=== PATIENT | female | born 1970 | race Caucasian/White ===

== ENCOUNTER 2017-12-08 11:53 | Emergency (ER) | payer OTHER ==
[2017-12-08 12:21] VITALS: BP 145/86; PULSE 80; O2SAT 98
--- NOTE | 2017-12-08 12:22 | ERPHSYRPT ---
- History of Present Illness Time Seen by Provider: 12/08/17 12:10 Source: patient Exam Limitations: no limitations Physician History: 47 y/o white female with 1 week h/o right lower back pain. worsened today. pt has had similar sx in the past and was dx with uti. pt took old bactrim, thought sx improved but worsened today. pain shoots down right buttock. denies trauma. denies dysuria, frequency and hesitancy. Timing/Duration: week(s) (1) Method of Injury: other (no injury) Quality: radiating, sharp Back Pain Location: paraspinous muscles Back Pain Radiation: buttocks Severity of Pain-Max: moderate Severity of Pain-Current: mild Modifying Factors: Improves With: movement Associated Symptoms: light-headedness, No fever, No chills, No sweating, No urinary incontinence, No loss of bowel control, No nausea, No vomiting, No dizziness, No weakness, No sensory/motor loss, No muscle spasms Allergies/Adverse Reactions: No Known Drug Allergies Allergy (Unverified 08/03/16 12:26) Home Medications: Clonidine HCl 0.1 mg [Catapres 0.1 MG] 0.1 mg PO BID 08/03/16 [History] Lisinopril 20 mg [Zestril 20 MG] 20 mg PO DAILY 08/03/16 [History] Naproxen 500 mg PO BID 08/03/16 [History] Oxycodone HCl/Acetaminophen [Oxycodone-Acetaminophen 5-325] 1 tab PO Q6HPRN PRN 08/03/16 [History] - Review of Systems Constitutional: No Symptoms, No Fever, No Chills Eyes: No Symptoms, No Eye Pain Ears, Nose, & Throat: No Symptoms, No Ear Pain Respiratory: No Symptoms, No Cough, No Dyspnea, No Dyspnea on Exertion (MCKNIGHT), No Stridor, No Wheezing Cardiac: No Symptoms, No Chest Pain Abdominal/Gastrointestinal: No Symptoms, No Abdominal Pain, No Nausea, No Vomiting, No Diarrhea Genitourinary Symptoms: No Symptoms, No Dysuria, No Frequency, No Hematuria Musculoskeletal: Back Pain Skin: No Symptoms Neurological: No Symptoms Psychological: No Symptoms Endocrine: No Symptoms Hematologic/Lymphatic: No Symptoms Immunological/Allergic: No Symptoms All Other Systems: Reviewed and Negative - Past Medical History Neurological History: No Pertinent History Cardiac History: Hypertension Respiratory History: No Pertinent History Endocrine Medical History: No Pertinent History Musculoskeletal History: Arthritis, Degenerative Disk Disease GI Medical History: No Pertinent History History: No Pertinent History Psycho-Social History: No Pertinent History Female Reproductive Disorders: No Pertinent History - Past Surgical History Neuro Surgical History: No Pertinent History Cardiac: No Pertinent History Respiratory: No Pertinent History Gastrointestinal: No Pertinent History Genitourinary: No Pertinent History Musculoskeletal: No Pertinent History Female Surgical History: No Pertinent History - Nursing Vital Signs Nursing Vital Signs: Initial Vital Signs Temperature 97.6 F 12/08/17 12:13 Pulse Rate 80 12/08/17 12:13 Respiratory Rate 16 12/08/17 12:13 Blood Pressure 145/86 12/08/17 12:13 O2 Sat by Pulse Oximetry 98 12/08/17 12:13 Pain Scale Pain Intensity [Posterior Back 8 ] Pain Intensity 8 - Physical Exam General Appearance: mild distress, alert Eye Exam: PERRL/EOMI, eyes nml inspection Ears, Nose, Throat Exam: normal ENT inspection, TMs normal Neck Exam: normal inspection, non-tender, supple, full range of motion Respiratory Exam: normal breath sounds, lungs clear, No chest tenderness, No respiratory distress, No airway intact, No wheezing, No stridor Gastrointestinal Exam: soft, No tenderness Pelvic Exam: not done Rectal Exam: not done Back Exam: normal inspection, normal range of motion, CVA tenderness (right), No vertebral tenderness Extremity Exam: normal inspection, normal range of motion, pelvis stable Neurologic Exam: alert, oriented x 3, cooperative, heel sander rubber II-XII nml as tested, No motor deficits, No sensory deficit, No disoriented, No confusion Skin Exam: normal color, warm, dry Lymphatic Exam: adenopathy SpO2 Interpretation: normal Oxygen Delivery: Room Air - Course Nursing assessment & vital signs reviewed: Yes Ordered Tests: Active Orders 24 hr Category Date Time Status Clean Catch Urine Specimen STAT Care 12/08/17 12:22 Active CULTURE,URINE Stat Lab 12/08/17 12:30 Received UA W/ MICROSCOPIC Stat Lab 12/08/17 12:30 Completed Lab/Rad Data: Laboratory Results 12/08/17 Range/Units 12:30 Ur Collection Type CCMS Urine Color YELLOW (YELLOW) Urine Appearance CLEAR (CLEAR) Urine pH 5.0 (5-6) Ur Specific [place] 1.025 (1.005-1.025) Urine Protein 30 (Negative) Urine Ketones SMALL (NEGATIVE) Urine Blood 50 (0-5) Khris/ul Urine Nitrite POSITIVE (NEGATIVE) Urine Bilirubin SMALL (NEGATIVE) Urine Urobilinogen 1 (0-1) mg/dL Ur Leukocyte Esterase SMALL (NEGATIVE) Urine Microscopic RBC 0-2 (0-2) /HPF Urine Microscopic WBC 5-10 (0-5) /HPF Ur Epithelial Cells FEW (FEW) /HPF Urine Bacteria RARE (NEGATIVE) /HPF Urine Mucus SLIGHT (NEGATIVE) /HPF Urine Culture Reflexed YES (NO) Urine Glucose 100 (NEGATIVE) mg/dL Specimen Received 12-08-17 1250 - Progress Progress: unchanged Progress Note: 12/08/17 12:58 pt has a uti. will prescribe cipro Counseled pt/family regarding: lab results, diagnosis - Departure Time of Disposition: 12:59 Departure Disposition: Home Clinical Impression: UTI (urinary tract infection) Condition: Stable Critical Care Time: No Referrals: DAPHNE MACIAS [Primary Care Provider] - Additional Instructions: drink plenty of fluids. add ibuprofen for pain. follow up with primary doctor for persistent symptoms Prescriptions: Ciprofloxacin [Cipro 500 MG] 500 mg PO BID #14 tablet Tramadol HCl 50 mg [Ultram 50 mg] 50 mg PO TID PRN #15 tablet PRN Reason: Mild To Moderate Pain
[2017-12-08 12:54] LABS: Appearance CLEAR (CLEAR); Bacteria RARE /HPF (NEGATIVE); Bilirubin SMALL (NEGATIVE); Blood 50 Ery/ul (0-5); Epithelial Cells FEW /HPF (FEW); Glucose 100 mg/dL (NEGATIVE); Ketones SMALL (NEGATIVE); Leukocyte Esterase SMALL (NEGATIVE); Mucus SLIGHT /HPF (NEGATIVE); Nitrite POSITIVE (NEGATIVE); Protein,Urine Dip 30 (Negative); RBC 0-2 /HPF (0-2); Specific Gravity 1.025 (1.005-1.025); Urobilinogen 1 mg/dL (0-1)
== END 2017-12-08 13:07 | disposition home or self-care (01) ==
LOC: ED 11:53
DX: N39.0 Urinary tract infection, site not specified (principal); Z79.899 Other long term (current) drug therapy
CPT/HCPCS: 81000; 87086; 99283

== ENCOUNTER 2023-05-27 00:49 | Emergency (ER) | payer OTHER ==
[2023-05-27 01:16] VITALS: TEMP 97.1
--- NOTE | 2023-05-27 01:25 | ERPHSYRPT ---
- History of Present Illness Time Seen by Provider: 05/27/23 01:15 Source: patient, family Exam Limitations: no limitations Patient Subjective Stated Complaint: pt states she passed out. states she had 5 teeth pulled on and has not been eating or drinking well since. Triage Nursing Assessment: pt alert and oriented, answers questions approp. pt ambulates into room with steady gait noted. respirations nonlabored. skin warm and dry. abrasion to rt cheek and rt hand. pupils equal and reactive. pt moves all ext without diff. Physician History: This is a 52-year-old white female patient Dr. Newell who presents to the emergency department after a syncopal episode caused her to fall hitting her head and face. Patient was in the kitchen and suddenly felt dizzy slightly nauseated and the next thing she knew her was picking her up off the floor. Her daughter and placed her on a chair where the patient was staring off into space and not interacting. Suddenly, patient became alert and oriented. Patient arrived to the emergency department alert and oriented and vital signs are stable. Patient denies chest pain and she denies shortness of breath. 5 days ago, patient was getting dentures fitted. Yesterday, 05/26/2023, patient had adjustments made on her teeth in order for the dentures to fit more securely. She does have dental pain that began 5 days ago with this denture making process. However, she is only taking Tylenol and naproxen. Patient has a history of hypertension. She denies abdominal pain. She denies nausea vomiting and diarrhea symptoms. Timing/Duration: today Severity: mild (Mild symptoms now but moderate symptoms prior to arrival) Modifying Factors: Improves With: nothing Associated Symptoms: denies symptoms Allergies/Adverse Reactions: No Known Drug Allergies Allergy (Verified 05/27/23 01:16) Home Medications: Amitriptyline HCl 25 mg [Amitriptyline 25 mg Tablet] 25 mg PO HS 05/27/23 [History] Losartan/Hydrochlorothiazide [Losartan-Hctz 50-12.5 mg Tab] 1 each PO DAILY 05/27/23 [History] Metoprolol Succinate 50 mg [Toprol Xl 50 MG] 50 mg PO HS 05/27/23 [History] Hx Tetanus, Diphtheria Vaccination/Date Given: Yes (2022) Hx Influenza Vaccination/Date Given: No Hx Pneumococcal Vaccination/Date Given: No Immunizations Up to Date: Yes Travel Risk - International Travel Have you traveled outside of the country in past 3 weeks: No - Coronavirus Screening Are you exhibiting any of the following symptoms?: No Close contact with a COVID-19 positive Pt in past 14-21 Days: No - Vaccine Status Have you recieved a Covid-19 vaccination: No - Review of Systems Constitutional: No Symptoms Eyes: No Symptoms Ears, Nose, & Throat: No Symptoms Respiratory: No Symptoms Cardiac: No Symptoms Abdominal/Gastrointestinal: No Symptoms Genitourinary Symptoms: No Symptoms Musculoskeletal: No Symptoms Skin: No Symptoms Neurological: Dizziness Psychological: No Symptoms Endocrine: No Symptoms Hematologic/Lymphatic: No Symptoms Immunological/Allergic: No Symptoms All Other Systems: Reviewed and Negative - Past Medical History Pertinent Past Medical History: Yes Neurological History: No Pertinent History Cardiac History: Hypertension Respiratory History: No Pertinent History Endocrine Medical History: No Pertinent History Musculoskeletal History: Osteoarthritis GI Medical History: No Pertinent History History: No Pertinent History Psycho-Social History: No Pertinent History Female Reproductive Disorders: No Pertinent History Other Medical History: SPONDYLOSIS, HX OF LATERAL EPICONDYLITIS, CARPAL TUNNEL SURGERY. - Past Surgical History Past Surgical History: Yes Neuro Surgical History: No Pertinent History Cardiac: No Pertinent History Respiratory: No Pertinent History Gastrointestinal: No Pertinent History Genitourinary: No Pertinent History Musculoskeletal: Orthopedic Surgery Female Surgical History: No Pertinent History Other Surgical History: RT CARPAL TUNNEL SURGERY - Social History Smoking Status: Never smoker Exposure to second hand smoke: Yes Drug Use: none Patient Lives Alone: No - Nursing Vital Signs Nursing Vital Signs: Initial Vital Signs Temperature 97.1 F 05/27/23 00:58 Pulse Rate 79 05/27/23 00:58 Respiratory Rate 16 05/27/23 00:58 Blood Pressure 142/86 05/27/23 00:58 O2 Sat by Pulse Oximetry 99 05/27/23 00:58 Pain Scale Pain Intensity 0 - Physical Exam General Appearance: no apparent distress, alert, anxiety Eye Exam: PERRL/EOMI, eyes nml inspection Ears, Nose, Throat Exam: normal ENT inspection, moist mucous membranes Neck Exam: normal inspection, non-tender, supple, full range of motion Respiratory Exam: normal breath sounds, lungs clear, airway intact, No chest tenderness, No respiratory distress Cardiovascular Exam: regular rate/rhythm, normal heart sounds, normal peripheral pulses Gastrointestinal/Abdomen Exam: soft, normal bowel sounds, No tenderness Pelvic Exam: not done Rectal Exam: not done Back Exam: normal inspection, normal range of motion, No CVA tenderness, No vertebral tenderness Extremity Exam: normal inspection, normal range of motion, pelvis stable Neurologic Exam: alert, oriented x 3, cooperative, media production operator II-XII nml as tested, normal mood/affect, nml cerebellar function, nml station & gait, sensation nml Skin Exam: abrasion (Right cheek and chin) Lymphatic Exam: No adenopathy SpO2 Interpretation: normal SpO2: 99 O2 Delivery: Room Air - Course Nursing assessment & vital signs reviewed: Yes EKG Interpreted by Me: RATE (72), Sinus Rhythm, NORMAL AXIS, NORMAL INTERVALS, NORMAL QRS, NORMAL ST-T, Other Ordered Tests: Active Orders 24 hr Category Date Time Status Dry Finisher STAT Care 05/27/23 01:26 Active Clean Catch Urine Specimen STAT Care 05/27/23 01:25 Active EKG-ER Only STAT Care 05/27/23 01:25 Active IV Insertion STAT Care 05/27/23 01:25 Active Pulse Oximetry (ED) STAT Care 05/27/23 01:25 Active CERVICAL SPINE WO CONTRAST [CT] Stat Exams 05/27/23 01:25 Completed FACIAL BONES WO CONTRAST [CT] Stat Exams 05/27/23 01:26 Completed HEAD WITHOUT CONTRAST [CT] Stat Exams 05/27/23 01:25 Completed CBC W DIFF Stat Lab 05/27/23 01:37 Completed CMP Stat Lab 05/27/23 01:37 Completed CULTURE,URINE Stat Lab 05/27/23 02:35 Received ETHYL ALCOHOL Stat Lab 05/27/23 01:37 Completed POCT GLUCOSE Stat Lab 05/27/23 01:08 Completed TROPONIN Q4H Lab 05/27/23 01:37 Completed TROPONIN Q4H Lab 05/27/23 05:45 Ordered TROPONIN Q4H Lab 05/27/23 09:45 Ordered UA W/RFX UR CULTURE Stat Lab 05/27/23 02:35 Completed Urine Triage Profile Stat Lab 05/27/23 02:35 Completed Medication Summary Discontinued Medications Generic Name Dose Route Start Last Admin Trade Name Freq PRN Reason Stop Dose Admin Sodium Chloride 1,000 mls @ 999 mls/hr 05/27/23 01:25 05/27/23 01:31 Sodium Chloride 0.9% 1000 Ml IV 05/27/23 02:25 999 mls/hr .Q1H1M STA Administration Sodium Chloride Confirm 05/27/23 01:29 Sodium Chloride 0.9% 1000 Ml Administered 05/27/23 01:30 Dose 1,000 mls @ ud .ROUTE .STK-MED ONE Potassium Chloride 20 meq 05/27/23 02:07 05/27/23 02:25 Potassium Chloride Tab 10 Meq Tab PO 05/27/23 02:08 20 meq STAT ONE Administration Potassium Chloride Confirm 05/27/23 02:25 Potassium Chloride Tab 10 Meq Tab Administered 05/27/23 02:26 Dose 20 meq .ROUTE .STK-MED ONE Lab/Rad Data: Laboratory Result Diagrams 05/27/23 01:37 05/27/23 01:37 Laboratory Results 05/27/23 05/27/23 05/27/23 Range/Units 02:35 02:35 01:37 WBC (4.0-10.5) x10^3/uL RBC (4.1-5.4) x10^6/uL Hgb (12.0-16.0) g/dL Hct (35-47) % MCV (78-100) fL MCH (26-32) pg MCHC (32-36) g/dL RDW (11.5-14.0) % Plt Count (150-450) x10^3/uL MPV (7.5-11.0) fL Gran % (36.0-66.0) % Immature Gran % (Auto) (0.00-0.4) % Nucleat RBC Rel Count (0.00-0.1) % Eos # (Auto) (0-0.5) x10^3/uL Immature Gran # (Auto) (0.00-0.03) x10^3u/L Absolute Lymphs (auto) (1.0-4.6) x10^3/uL Absolute Monos (auto) (0.0-1.3) x10^3/uL Absolute Nucleated RBC (0.00-0.01) x10^3u/L Lymphocytes % (24.0-44.0) % Monocytes % (0.0-12.0) % Eosinophils % (0.00-5.0) % Basophils % (0.0-0.4) % Absolute Granulocytes (1.4-6.9) x10^3/uL Basophils # (0-0.4) x10^3/uL Sodium (137-145) mmol/L Potassium (3.5-5.1) mmol/L Chloride (98-107) mmol/L Carbon Dioxide (22-30) mmol/L Anion Gap (5-15) MEQ/L BUN (7-17) mg/dL Creatinine (0.52-1.04) mg/dL Estimated GFR ML/MIN Glucose (74-106) mg/dL POC Glucometer (74 to 106) mg/dL Calcium (8.4-10.2) mg/dL Total Bilirubin (0.2-1.3) mg/dL AST (14-36) U/L ALT (0-35) U/L Alkaline Phosphatase (38-126) U/L Troponin I < 0.012 (0.000-0.034) ng/mL Serum Total Protein (6.3-8.2) g/dL Albumin (3.5-5.0) g/dL Urine Color Yellow (Yellow) Urine Appearance Clear (Clear) Urine pH 6.0 (4.6-8.0) Ur Specific [place] 1.025 (1.005-1.030) Urine Protein Trace A (Negative) Urine Glucose (UA) Negative (Negative) mg/dL Urine Ketones 15 A (Negative) Urine Blood Negative (Negative) Urine Nitrite Negative (Negative) Urine Bilirubin Negative (Negative) Urine Urobilinogen 0.2 (0.2) mg/dL Ur Leukocyte Esterase Moderate A (Negative) U Hyaline Cast (Auto) 11-20 (0-2) /LPF Urine Microscopic RBC 0-2 (0-5) /HPF Urine Microscopic WBC 21-50 A (0-5) /HPF Ur Epithelial Cells Few (None Seen) /HPF Urine Bacteria None Seen (None Seen) /HPF Urine Culture Reflexed YES (NO) Urine Opiates Level NEGATIVE (NEGATIVE) Ur Methadone NEGATIVE (NEGATIVE) Urine Barbiturates NEGATIVE (NEGATIVE) Ur Phencyclidine (PCP) NEGATIVE (NEGATIVE) Urine Amphetamine NEGATIVE (NEGATIVE) U Benzodiazepine Level NEGATIVE (NEGATIVE) Urine Cocaine NEGATIVE (NEGATIVE) Urine Marijuana (THC) NEGATIVE (NEGATIVE) Ethyl Alcohol (0-10) mg/dL 05/27/23 05/27/23 05/27/23 Range/Units 01:37 01:37 01:08 WBC 6.7 (4.0-10.5) x10^3/uL RBC 4.46 (4.1-5.4) x10^6/uL Hgb 13.1 (12.0-16.0) g/dL Hct 41.1 (35-47) % MCV 92.2 (78-100) fL MCH 29.4 (26-32) pg MCHC 31.9 L (32-36) g/dL RDW 13.0 (11.5-14.0) % Plt Count 214 (150-450) x10^3/uL MPV 12.7 H (7.5-11.0) fL Gran % 55.2 (36.0-66.0) % Immature Gran % (Auto) 0.5 H (0.00-0.4) % Nucleat RBC Rel Count 0.0 (0.00-0.1) % Eos # (Auto) 0.07 (0-0.5) x10^3/uL Immature Gran # (Auto) 0.03 (0.00-0.03) x10^3u/L Absolute Lymphs (auto) 2.20 (1.0-4.6) x10^3/uL Absolute Monos (auto) 0.63 (0.0-1.3) x10^3/uL Absolute Nucleated RBC 0.00 (0.00-0.01) x10^3u/L Lymphocytes % 33.1 (24.0-44.0) % Monocytes % 9.5 (0.0-12.0) % Eosinophils % 1.1 (0.00-5.0) % Basophils % 0.6 (0.0-0.4) % Absolute Granulocytes 3.68 (1.4-6.9) x10^3/uL Basophils # 0.04 (0-0.4) x10^3/uL Sodium 137 (137-145) mmol/L Potassium 3.2 L (3.5-5.1) mmol/L Chloride 98 (98-107) mmol/L Carbon Dioxide 29 (22-30) mmol/L Anion Gap 13.0 (5-15) MEQ/L BUN 28 H (7-17) mg/dL Creatinine 0.85 (0.52-1.04) mg/dL Estimated GFR 82.4 ML/MIN Glucose 104 (74-106) mg/dL POC Glucometer 103 (74 to 106) mg/dL Calcium 10.3 H (8.4-10.2) mg/dL Total Bilirubin 0.60 (0.2-1.3) mg/dL AST 34 (14-36) U/L ALT 16 (0-35) U/L Alkaline Phosphatase 89 (38-126) U/L Troponin I (0.000-0.034) ng/mL Serum Total Protein 7.9 (6.3-8.2) g/dL Albumin 4.9 (3.5-5.0) g/dL Urine Color (Yellow) Urine Appearance (Clear) Urine pH (4.6-8.0) Ur Specific [place] (1.005-1.030) Urine Protein (Negative) Urine Glucose (UA) (Negative) mg/dL Urine Ketones (Negative) Urine Blood (Negative) Urine Nitrite (Negative) Urine Bilirubin (Negative) Urine Urobilinogen (0.2) mg/dL Ur Leukocyte Esterase (Negative) U Hyaline Cast (Auto) (0-2) /LPF Urine Microscopic RBC (0-5) /HPF Urine Microscopic WBC (0-5) /HPF Ur Epithelial Cells (None Seen) /HPF Urine Bacteria (None Seen) /HPF Urine Culture Reflexed (NO) Urine Opiates Level (NEGATIVE) Ur Methadone (NEGATIVE) Urine Barbiturates (NEGATIVE) Ur Phencyclidine (PCP) (NEGATIVE) Urine Amphetamine (NEGATIVE) U Benzodiazepine Level (NEGATIVE) Urine Cocaine (NEGATIVE) Urine Marijuana (THC) (NEGATIVE) Ethyl Alcohol < 10 (0-10) mg/dL - Progress Progress: improved Progress Note: 05/27/23 01:41 This patient's medical issue is 1 of moderate complexity. The level of complexity and the workup performed is based on review of the past medical history, review of the patient's medication list, review of the patient's drug allergy list, history of present illness and physical findings on examination. The workup of this patient includes placement of intravenous line, infusion of normal saline solution, urinalysis, urine drug screen, ethyl alcohol, CT of the head, neck and face without contrast, CBC, CMP, twelve-lead EKG and troponin level. 05/27/23 04:03 I interpreted the patient's laboratory data results. Potassium is slightly low and we supplemented the patient with 20 mill equivalents oral potassium. Yesi ent has a urinary tract infection that is moderate. We provided patient 1 g of intravenous Rocephin. She has mild dehydration and I will give her an additional 500 mL of normal saline infusion. 05/27/23 04:[address] scan studies were interpreted by the radiologist and I reviewed the impressions: CT scan of the head without contrast is unremarkable study. No evidence for infarction, intracranial or extracranial hemorrhage. CT scan of the cervical spine shows no acute fracture or subluxation. There are chronic degenerative changes. There is mild cervical spondylosis at the level of C5-C6. MRI of the cervical spine if clinically indicated. CT scan of the facial bones without contrast shows no acute fracture or dislocation. All of the above radiographic study results were discussed with the patient. Counseled pt/family regarding: lab results, diagnosis, need for follow-up, rad results Medical Desision Making - Independent Historian Additional History obtained from: Family - Diagnostic Testing Diagnostic test were ordered, analyzed, and reviewed by me: Yes Radiological Interpretation: Reviewed by me, Teleradiologist Report - Risk of complications The pt has a mod risk of morbidity or mortality based on: Need for prescription drug management - Departure Departure Disposition: Home Clinical Impression: Hypokalemia, UTI (urinary tract infection), Mild dehydration, Episode of syncope Condition: Stable Critical Care Time: No Referrals: GILBERTO NEWELL MD [Primary Care Provider] - Follow up/PCP as directed Additional Instructions: Drink plenty of fluids. Take your antibiotics and other medications as prescribed. Follow-up with your primary care provider by phone on 05/29/2023, to make arranges for follow-up appointment in the next 5 to 7 days. Prescriptions: Cefdinir 300 mg PO BID #14 cap
[2023-05-27] MEDS ORDERED: Sodium Chloride 0.9% 1000 ML 1,000 ML ONE (01:29)
[2023-05-27] MEDS: Sodium Chloride 0.9% 1000 ML 1,000 ML IV STA (01:31)
[2023-05-27 01:39] LABS: Absolute Neutrophil Ct (ANC) 3.68 x10^3/uL (1.4-6.9); BASOPHIL % 0.6 % (0.0-0.4); Basophil (Absolute #) 0.04 x10^3/uL (0-0.4); Eosinophil % 1.1 % (0.00-5.0); Eosinophil (Absolute #) 0.07 x10^3/uL (0-0.5); Hematocrit 41.1 % (35-47); Hemoglobin 13.1 g/dL (12.0-16.0); IMMATURE GRAN # 0.03 x10^3u/L (0.00-0.03); IMMATURE GRAN % 0.5 % (0.00-0.4); Lymphocytes % 33.1 % (24.0-44.0); Mean Cell Volume 92.2 fL (78-100); Mean Corpuscular Hemoglobin 29.4 pg (26-32); Mean Corpuscular Hgb Concent. 31.9 g/dL (32-36); Mean Platelet Volume 12.7 fL (7.5-11.0); Monocyte (Absolute #) 0.63 x10^3/uL (0.0-1.3); Monocytes % 9.5 % (0.0-12.0); Neutrophil % 55.2 % (36.0-66.0); Platelet Count 214 x10^3/uL (150-450); Red Blood Count 4.46 x10^6/uL (4.1-5.4); White Blood Count 6.7 x10^3/uL (4.0-10.5)
[2023-05-27 01:52] LABS: ALBUMIN 4.9 g/dL (3.5-5.0); ALKALINE PHOSPHATASE 89 U/L (38-126); BLOOD UREA NITROGEN 28 mg/dL (7-17); CHLORIDE 98 mmol/L (98-107); Calcium 10.3 mg/dL (8.4-10.2); Carbon Dioxide 29 mmol/L (22-30); Creatinine 1 0.85 mg/dL (0.52-1.04); EST GLOMERULAR FILTRATION RATE 82.4 ML/MIN; ETHYL ALCOHOL < 10 mg/dL (0-10); Glucose 104 mg/dL (74-106); Potassium 3.2 mmol/L (3.5-5.1); SGOT/AST 34 U/L (14-36); SGPT/ALT 16 U/L (0-35); SODIUM 137 mmol/L (137-145); Total Protein 7.9 g/dL (6.3-8.2)
[2023-05-27] MEDS ORDERED: Klor Con ONE (02:25)
[2023-05-27] MEDS: Klor Con PO ONE (02:25)
[2023-05-27 03:01] LABS: ADD URINE CULTURE? YES (NO); Appearance Clear (Clear); Bacteria None Seen /HPF (None Seen); Bilirubin Negative (Negative); Blood Negative (Negative); Epithelial Cells Few /HPF (None Seen); Glucose, Urine Negative (Negative); Ketones 15 (Negative); Leukocyte Esterase Moderate (Negative); Nitrite Negative (Negative); Protein,Urine Dip Trace (Negative); RBC 0-2 /HPF (0-5); Specific Gravity 1.025 (1.005-1.030); Urobilinogen 0.2 mg/dL (0.2); WBC 21-50 /HPF (0-5)
[2023-05-27 03:03] LABS: Amphetamine,Urine NEGATIVE (NEGATIVE); Barbiturate,Urine NEGATIVE (NEGATIVE); Benzodiazepine,Urine NEGATIVE (NEGATIVE); Cocaine,Urine NEGATIVE (NEGATIVE); Methadone,Urine NEGATIVE (NEGATIVE); Opiate,Urine NEGATIVE (NEGATIVE); PCP,Urine NEGATIVE (NEGATIVE); THC,Urine NEGATIVE (NEGATIVE)
--- NOTE | 2023-05-27 03:50 | XRAY ---
CLINICAL HISTORY: Syncopal episode TECHNIQUE: Non-contrast CT scan of the facial bones was performed, with sagittal and coronal reconstructions. COMPARISON: None. FINDINGS: Maxillofacial bones are unremarkable, no fracture lines can be detected. Normal appearance of the mandible. No evidence of soft tissue hematoma. No air/fluid level is seen within the paranasal sinuses. Retention cyst is seen in the left maxillary sinus. Left sided deviated nasal septum. Lolis bullosa of both middle nasal turbinates. Normal both orbits. Intact bony boundaries. IMPRESSION: 1. No maxillofacial fracture can be detected. 2. Left maxillary sinus retention cyst. Electronically Signed by: Marcia Simmons MD. (05/27/2023 01:37:23 SALES DESIGNER)
--- NOTE | 2023-05-27 03:53 | XRAY ---
CLINICAL HISTORY: Syncopal episode TECHNIQUE: Axial non-contrast CT scan of the brain was performed from the skull base to the high parietal region. Coronal and sagittal reconstructions were also obtained. COMPARISON: None. FINDINGS: The visualized brain parenchyma shows a normal appearance. No focal parenchymal abnormalities are demonstrated. Byers-white matter differentiation is maintained. Normal CT appearance of the posterior fossa structures namely the cerebellar hemispheres, brainstem and cerebellar peduncles. No midline shifts or deformity. No intracerebral or extra axial hematoma. Normal size and configuration of the cerebral ventricles. Prominant fonto-pareital extra-axial CSF spaces. The osseous structures in the skull base are unremarkable. No definite calvarium fractures. Left maxillary sinus focal mucosal thickening. IMPRESSION: Unremarkable study. No evidence of established infarction, or intracranial or extracranial hemorrhage. Electronically Signed by: Marcia Simmons MD. (05/27/2023 01:34:59 ARMOR RECONNAISSANCE VEHICLE DRIVER)
--- NOTE | 2023-05-27 03:53 | XRAY ---
CLINICAL HISTORY: Syncopal episode TECHNIQUE: Thin axial CT of the cervical spine was performed with sagittal and coronal reconstructions without contrast administration. COMPARISON: None. FINDINGS: No acute vertebral fracture can be detected. Subtle anterolisthesis of C2 over C3, C3 over C4 and C4 over C5 vertebra. Reversal of cervical curve suggestive of muscle spasm. Mild cervical spondylosis at C5-6 level with posterior marginal osteophytes and narrowing of intervening disc space. Posterior disc osteophyte complex at C5-6 disc with associated spinal canal stenosis and bilateral neural foraminal stenosis, more severe at the left side. Degnerative changes of C2-C3, C3-C4 AND C4-C5 facet joints. Degenrative changes of the atlanto-axial articulation. Osteoarthritis of costovertebral junctions of first ribs with narrowing joint spaces, subchondral sclerosis of articular surfaces and subchondral cysts of left first rib articular surface. Vertebral bodies heights. No lytic or lytic bone lesions. No evidence of soft tissue hematoma. IMPRESSION: 1. No acute vertebral fractures. 2. Subtle anterolisthesis of C2 over C3, C3 over C4 and C4 over C5 vertebra, Likely chronic. 3. Reversal of cervical curve suggestive of muscle spasm. 4. Mild cervical spondylosis at C5-6 level with narrowing of intervening disc space and posterior disc osteophyte complex with associated spinal canal stenosis and bilateral neural foraminal stenosis, more severe at the left side, Would recommend MRI cervical spine for further evaluation if clinically warranted. 5. Osteoarthritis of costovertebral junctions of first ribs. Electronically Signed by: Marcia Simmons MD. (05/27/2023 01:31:09 JAVA [id number] SOFTWARE ENGINEER)
[2023-05-27] MEDS ORDERED: ROCEPHIN 1 GM / 100 ML NaCl 1 GM/100 ML IVPB IV ONE (04:08)
[2023-05-27] MEDS ORDERED: Sodium Chloride 0.9% 500 ML 500 ML IV ONE (04:08)
[2023-05-27] MEDS: Sodium Chloride 0.9% 500 ML 500 ML IV ONE (04:09)
[2023-05-27] MEDS: ROCEPHIN 1 GM / 100 ML NaCl 1 GM/100 ML IVPB IV ONE (04:10)
[2023-05-27 04:47] VITALS: BP 126/80; PULSE 91; RESP 15; O2SAT 100
== END 2023-05-27 04:55 | disposition home or self-care (01) ==
LOC: ED 00:49
DX: N39.0 Urinary tract infection, site not specified (principal); E87.6 Hypokalemia; E86.0 Dehydration; R55 Syncope and collapse; I10 Essential (primary) hypertension; Z79.899 Other long term (current) drug therapy; Z28.310 Unvaccinated for COVID-19
CPT/HCPCS: 36000; 36415; 70450; 70486; 72125; 80053; 80307; 81001; 82077; 82947; 84484; 85025; 87086; 93005; 93041; 94760; 99284; J0696; A9270-GY